=== PATIENT | male | born 1945 | race Caucasian/White ===

== ENCOUNTER 2016-05-31 08:39 | Inpatient (IN) | payer OTHER ==
[2016-05-31] MEDS ORDERED: ONDANSETRON 4 MG/2 ML VIAL IVP ONE ×2 (09:01→09:30)
--- NOTE | 2016-05-31 09:06 | CPEKG ---
Heart Rate: 148 RR Interval: 405 P-R Interval: 132 QRSD Interval: 74 QT Interval: 268 QTC Interval: 421 P [place]: 71 QRS [place]: 41 T Wave [place]: -46 EKG Severity - ABNORMAL ECG - EKG Impression: SINUS TACHYCARDIA EKG Impression: MULTIPLE VENTRICULAR PREMATURE COMPLEXES EKG Impression: CONSIDER POSTERIOR INFARCT EKG Impression: REPOLARIZATION ABNORMALITY, PROB RATE RELATED Electronically Signed By: Parveen Wallace 31-May-2016 11:43:50
[2016-05-31] MEDS ORDERED: NS 1,000 ML IV ONE ×4 (09:10→15:42)
[2016-05-31 09:18] LABS: % IMMATURE GRANULYOCYTES 0.7 % (0.0-1.1); ABSOLUTE IMMATURE GRANULOCYTES 0.11 10^3/uL (0.00-0.10); ADD DIFF? NO; ADD MORPH? NO; ADD SCAN? NO; ATYPICAL LYMPHOCYTE FLAG 0 (0-99); FRAGMENT RBC FLAG 0 (0-99); LEFT SHIFT FLG 0 (0-99); LIPEMIA HEMOLYSIS FLAG 90 (0-99); MEAN CELL HEMOGLOBIN 34.2 pg (27.9-34.1); MEAN CELL HEMOGLOBIN CONCENTR. 34.3 g/dL (32.4-36.7); MEAN CELL VOLUME 99.7 fL (81.5-99.8); MEAN PLATELET VOLUME 11.7 fL (8.7-11.7); PLATELET CLUMPS FLAG 0 (0-99); PLATELET COUNT 185 10^3/uL (150-400); RED BLOOD CELL COUNT 3.51 10^6/uL (4.40-6.38); RED CELL DISTRIBUTION WIDTH 12.9 % (11.5-15.2)
[2016-05-31] MEDS ORDERED: PANTOPRAZOLE SODIUM 40 MG VIAL IVP ONE (09:30)
[2016-05-31 09:32] LABS: INR 1.44 (0.83-1.16); PROTIME(PATIENT) 17.5 SEC (12.0-15.0)
[2016-05-31 09:33] LABS: ANION GAP 16 mEq/L (8-16); APTT 27.6 SEC (23.0-38.0); CALCIUM 8.8 mg/dL (8.5-10.4); CARBON DIOXIDE 23 mEq/l (22-31); CHLORIDE 104 mEq/L (97-110); CREATININE 1.3 mg/dL (0.7-1.3); GLOMERULAR FILTRATION RATE 55; GLUCOSE 249 mg/dL (70-100); POTASSIUM 3.5 mEq/L (3.5-5.2); SODIUM 143 mEq/L (134-144)
[2016-05-31 09:34] LABS: ALBUMIN 3.4 g/dL (3.5-5.0); BILIRUBIN,TOTAL 2.2 mg/dL (0.1-1.4); BILIRUBIN-CONJUGATED 0.6 mg/dL (0.0-0.5); BILIRUBIN-UNCONJUGATED 1.6 mg/dL (0.0-1.1); TOTAL PROTEIN 6.3 g/dL (6.3-8.2)
--- NOTE | 2016-05-31 09:43 | EDPHY ---
H & P Stated Complaint: gi bleeding/etoh HPI/ROS: Chief complaint: Blood in vomit and stool History of present illness: This is a 70-year-old male with a history of extensive alcohol use who presents to the emergency department reporting he believes he has blood in his vomit and stool. Patient has been feeling unwell for the last few days. Yesterday became nauseous and started to vomit. Patient states the vomiting is starting to become bloody with bright red blood. He further reports he has developed diarrhea. He states his stool is very dark in color. He describes associated generalized malaise as well as dizziness. He denies specific precipitating factors. He denies alleviating factors. He denies other associated signs or symptoms. Review of systems: A 10 point review of systems was obtained and other than described above was negative - Personal History Current Tetanus/Diphtheria Vaccine: Unsure - Medical/Surgical History Hx Asthma: No Hx Chronic Respiratory Disease: No Hx Diabetes: No Hx Cardiac Disease: No Hx Renal Disease: No Hx Cirrhosis: No Hx Alcoholism: Yes Hx HIV/AIDS: No Hx Splenectomy or Spleen Trauma: No Other PMH: glaucoma. htn. high cholesterol. pancreatitis. previous hx of etoh heavy use. hemorrhoidectomy - Social History Smoking Status: Never smoked - Physical Exam Exam: General Appearance: Alert, unwell appearing. Eyes: Pupils equal and round no pallor or injection. ENT, Mouth: Mucous membranes moist. Respiratory: There are no retractions, lungs are clear to auscultation. Cardiovascular: Tachycardic. Gastrointestinal: Bowel sounds present. Abdomen is soft and nondistended. Minor tenderness diffusely to palpation. Neurological: Alert and oriented. Strength and sensation intact and symmetrical. Skin: Warm and dry, no rashes. Musculoskeletal: Neck is supple nontender. Extremities are symmetrical, full range of motion. Psychiatric: Patient is oriented X 3, there is no agitation. Constitutional: Initial Vital Signs Temperature (C) 36.4 C 05/31/16 08:44 Heart Rate 174 H 05/31/16 08:44 Respiratory Rate 22 H 05/31/16 08:44 Blood Pressure 112/84 H 05/31/16 08:44 O2 Sat (%) 97 05/31/16 08:44 O2 Delivery Mode Room Air Allergies/Adverse Reactions: lidocaine Allergy (Verified 05/31/16 08:43) Home Medications: Medication Instructions Recorded Fluticasone Nasal [Flonase Nasal 1 sprays NASAL BID PRN 04/01/14 [place]] MAGNESIUM [Magnesium Oxide 200 mg] 1 tab PO DAILY #30 tab 04/05/14 Atorvastatin Calcium [Lipitor 20 20 mg PO HS 05/31/16 mg (*)] Folic Acid [FOLIC ACID] 1 mg PO DAILY 05/31/16 Latanoprost [Latanoprost] 1 drop EACHEYE HS 05/31/16 Loratadine [Claritin] 10 mg PO DAILY PRN 05/31/16 Metoprolol Succinate 50 mg PO HS 05/31/16 Propylene Glycol [Systane Balance] 1 drop EACHEYE HS PRN 05/31/16 Medical Decision Making ED Course/Re-evaluation: Patient discussed with my secondary supervising physician Dr. Parveen Wallace. Patient presents to the emergency department reporting blood in his vomit and stool. On presentation he is unwell appearing. He is significantly tachycardic. 2 IVs are established and he is IV hydrated. He is given Zofran for nausea. He is started on Protonix IV. Baseline blood studies show a mild anemia and significant elevation of his LFTs. I am concerned for a GI bleed. I am further concerned he might be in alcohol withdrawal given his significant alcohol use, his last drink was 2 days ago. He will be admitted to the hospitalist service under the care of Dr. Wanda Ocampo. On-call gastroenterology, Dr. Fish will see this patient in consultation. The plan has been discussed with the patient who voiced understanding and agreement with it. Differential Diagnosis: Included but not limited to upper GI bleed, lower GI bleed, coagulopathy, alcohol intoxication, alcohol withdrawal - Data Points Laboratory Results: Laboratory Results 05/31/16 09:00 05/31/16 09:00 05/31/16 09:00 WBC 16.16 H 10^3/uL (3.80-9.50) RBC 3.51 L 10^6/uL (4.40-6.38) Hgb 12.0 L g/dL (13.7-17.5) Hct 35.0 L % (40.0-51.0) MCV 99.7 fL (81.5-99.8) MCH 34.2 H pg (27.9-34.1) MCHC 34.3 g/dL (32.4-36.7) RDW 12.9 % (11.5-15.2) Plt Count 185 10^3/uL (150-400) MPV 11.7 fL (8.7-11.7) Neut % (Auto) 83.9 H % (39.3-74.2) Lymph % (Auto) 7.1 L % (15.0-45.0) Sharkey % (Auto) 8.0 % (4.5-13.0) Eos % (Auto) 0.0 L % (0.6-7.6) Baso % (Auto) 0.3 % (0.3-1.7) Nucleat RBC Rel Count 0.0 % (0.0-0.2) Absolute Neuts (auto) 13.55 H 10^3/uL (1.70-6.50) Absolute Lymphs (auto) 1.15 10^3/uL (1.00-3.00) Absolute Monos (auto) 1.30 H 10^3/uL (0.30-0.80) Absolute Eos (auto) 0.00 L 10^3/uL (0.03-0.40) Absolute Basos (auto) 0.05 10^3/uL (0.02-0.10) Absolute Nucleated RBC 0.00 10^3/uL (0-0.01) Immature Gran % 0.7 % (0.0-1.1) Immature Gran # 0.11 H 10^3/uL (0.00-0.10) PT 17.5 H SEC (12.0-15.0) INR 1.44 H (0.83-1.16) APTT 27.6 SEC (23.0-38.0) Sodium 143 mEq/L (134-144) Potassium 3.5 mEq/L (3.5-5.2) Chloride 104 mEq/L (97-110) Carbon Dioxide 23 mEq/l (22-31) Anion Gap 16 mEq/L (8-16) BUN 39 H mg/dL (7-23) Creatinine 1.3 mg/dL (0.7-1.3) Estimated GFR 55 Glucose 249 H mg/dL (70-100) Calcium 8.8 mg/dL (8.5-10.4) Iron 254.0 H mcg/dL (49-199) TIBC 250 L ug/dL (260-490) Iron Saturation 100 H % (20-55) Ferritin 618.0 H ng/mL (17.9-464.0) Total Bilirubin 2.2 H mg/dL (0.1-1.4) Conjugated Bilirubin 0.6 H mg/dL (0.0-0.5) Unconjugated Bilirubin 1.6 H mg/dL (0.0-1.1) AST 108 H IU/L (17-59) ALT 73 H IU/L (21-72) Alkaline Phosphatase 84 IU/L (38-126) Total Protein 6.3 g/dL (6.3-8.2) Albumin 3.4 L g/dL (3.5-5.0) Lipase 62.0 IU/L (23-300) DAVID Screen Pending Anti-Smooth Muscle Ab Pending Hep Bs Antigen Pending Hep Bs Antibody Pending Hep Bs Antibody, Quant Pending Hepatitis C Antibody Pending Patient ABO/Rh Pending Antibody Screen Pending Crossmatch IS Only See Detail Medications Given: Discontinued Medications Sodium Chloride (Ns) 1,000 mls @ 0 mls/hr IV ONCE ONE PRN Reason: Wide Open Stop: 05/31/16 09:11 Last Admin: 05/31/16 10:12 Dose: 1,000 mls Sodium Chloride (Ns) 1,000 mls @ 0 mls/hr IV ONCE ONE PRN Reason: Wide Open Stop: 05/31/16 10:01 Last Admin: 05/31/16 10:13 Dose: 1,000 mls Ondansetron HCl (Zofran) 4 mg IVP EDNOW ONE Stop: 05/31/16 09:02 Last Admin: 05/31/16 09:22 Dose: 4 mg Ondansetron HCl (Zofran) 4 mg IVP EDNOW ONE Stop: 05/31/16 09:31 Last Admin: 05/31/16 10:07 Dose: 4 mg Pantoprazole Sodium (Protonix) 40 mg IVP EDNOW ONE Stop: 05/31/16 09:31 Last Admin: 05/31/16 10:07 Dose: 40 mg Departure - Departure Disposition: [facility] Inpatient Acute Clinical Impression: Gastrointestinal hemorrhage Qualifiers: GI bleed type/associated pathology: unspecified gastrointestinal hemorrhage type Qualifier Code: (K92.2) Gastrointestinal hemorrhage, unspecified Condition: Fair
--- NOTE | 2016-05-31 11:42 | CPEKG ---
Heart Rate: 143 RR Interval: 420 P-R Interval: 132 QRSD Interval: 74 QT Interval: 246 QTC Interval: 380 P [place]: 75 QRS [place]: 22 T Wave [place]: 1 EKG Severity - ABNORMAL ECG - EKG Impression: SINUS TACHYCARDIA EKG Impression: CONSIDER POSTERIOR INFARCT EKG Impression: BORDERLINE T WAVE ABNORMALITIES Electronically Signed By: Parveen Wallace 31-May-2016 11:44:21
--- NOTE | 2016-05-31 12:03 | GCON ---
[f rep st] CONSULTATION CHIEF COMPLAINT: A 70-year-old male with hematemesis and abnormal liver function tests. We were ask ed to see this patient in consultation by Howard Ledbetter in the emergency department. HISTORY OF PRESENT ILLNESS: This 70-year-old gentleman has a history of significant alcohol use. He drinks wine and vodka on a regular basis. He last drank alcohol about 2 days ago. He also has a hi story of hypertension, hypercholesterolemia and previous episode of pancreatitis, rhabdomyolysis, and acute renal injury from NSAIDs. The patient has been feeling unwell for the last 2 days. He has be en having nausea and vomiting with retching. Yesterday, he vomited up some coffee-ground material. This morning he started vomiting bright red hematemesis. He has also been having several episodes of melena. The patient presented to the emergency department. He was found to have abnormal liver fun ction tests with an AST of 108, ALT of 73, total bilirubin of 2.2. Lipase is normal at 62. Hemoglob in was 12.0 with hematocrit 35. Platelets 185,000. The patient was tachycardic but with normal bloo d pressure. Asked to see patient for further evaluation. PAST MEDICAL HISTORY: Remarkable for hypertension, hyperlipidemia. ALLERGIES: Lidocaine. MEDICATIONS: At home: Hydrochlorothiazide, simvastatin, Flonase, atenolol. 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 Drinks a lcohol as above. He is a nonsmoker. No prior history of IV drug use. FAMILY HISTORY: Negative as it pertains to chief complaint. REVIEW OF SYSTEMS: Negative 10 systems other than mentioned in HPI. PHYSICAL EXAM: VITAL SIGNS: 125/74, pulse 134, respiratory rate 20, 95% saturation on room air. AMADA HOLDER: A pleasant gentleman, no acute distress. HEENT: Normocephalic, atraumatic. EOMI. NECK: S upple. No cervical adenopathy. No thyromegaly. LUNGS: Clear. CARDIAC: Normal S1, S2. No murmur . ABDOMEN: Soft, benign, nontender. No hepatosplenomegaly. EXTREMITIES: Unremarkable without clu bbing, cyanosis, edema. NEURO: Nonfocal. SKIN: Warm, dry, intact. PSYCH: Alert, oriented x3, wi th normal affect. LABORATORY DATA: AST of 108, total bilirubin of 2.2, ALT of 73. PT of 17.5, INR of 1.44. White cou nt 16.16, hemoglobin 12, hematocrit 35, platelets 185,000. IMPRESSION: 1. A 70-year-old gentleman with a history of significant alcohol use. Patient with episode hemateme sis and melena. Clinical presentation consistent with [place] tear. However, we need to exclu de significant alcoholic gastritis, peptic ulcer disease, portal hypertension with esophageal or loni evelyn varices. 2. Patient with abnormal liver function tests most consistent with alcoholic liver disease and acute alcoholic hepatitis. Also recommend excluding other potential causes such as chronic viral hepatiti s. Recommend right upper quadrant ultrasound to rule out biliary obstruction. Also evaluate for bandar atosis. Will recommend hepatitis B and C serologies, as well as autoimmune markers. RECOMMENDATIONS: 1. N.p.o. 2. Serial hemoglobin and hematocrit. 3. IV Protonix 80 mg bolus followed by 8 mg/hour. 4. Proceed with urgent upper endoscopy. We will ask for anesthesia assistance due to potential sign ificant alcohol withdrawal. 5. Right upper quadrant ultrasound. 6. Labs to include followup LFTs, HCV antibody, HB surface antigen, HB surface antibody, DAVID, anti-s mooth muscle antibody, iron, TIBC, and ferritin. We will follow with you. /[id number]/MODL
[2016-05-31 12:10] LABS: TOTAL IRON BINDING CAPACITY 250 ug/dL (260-490)
[2016-05-31 12:20] LABS: % SATURATION 100 % (20-55)
[2016-05-31] MEDS ORDERED: MIDAZOLAM 2 MG/2 ML VIAL ONE (12:43)
[2016-05-31] MEDS ORDERED: PROPOFOL/EMULSION 500 MG/50 ML BOTTLE IV ONE (12:46)
[2016-05-31] MEDS ORDERED: fentaNYL 100 MCG/2 ML INJ ONE (13:14)
[2016-05-31] MEDS ORDERED: chlordiazePOXIDE 25 MG CAP PO PRN (13:25)
[2016-05-31] MEDS ORDERED: THIAMINE HCL 500 MG in NS 100 ML IV ONE (13:25)
[2016-05-31] MEDS ORDERED: HYDROmorphONE/DILAUDID 1 MG/ML SYR IVP PRN (13:28)
[2016-05-31] MEDS ORDERED: ONDANSETRON 4 MG/2 ML VIAL IVP PRN ×2 (13:28→19:11)
[2016-05-31] MEDS ORDERED: NS 1,000 ML IV SCH (13:30)
--- NOTE | 2016-05-31 13:42 | US ---
Limited Right Upper Quadrant Ultrasound History: Abnormal LFTs, history of alcohol abuse. Comparison: Abdominal ultrasound April 01, 2014. Findings: The liver is diffusely echogenic with coarsened echotexture with a slightly nodular contour , suggesting cirrhosis. The right lobe of the liver measures 17 cm.. There is no intrahepatic biliary dilatation. The common bile duct measures 5 mm and is normal. The gallbladder is normal. The right k idney measures 11.1 cm and has normal echotexture and contour without hydronephrosis. The visible aor ta is normal caliber with partial obscuration of the aorta by overlying bowel gas. The visible portio ns of the pancreas are normal with limited visualization of the pancreatic head and tail. Impression: Nodular heterogeneous echogenic liver suggesting cirrhosis with no focal hepatic masses.
--- NOTE | 2016-05-31 14:09 | GPN ---
[f rep st] PROCEDURE NOTE DATE OF PROCEDURE: 05/31/2016 PROCEDURE: Esophagogastroduodenoscopy with banding. PREOPERATIVE DIAGNOSIS: Upper gastrointestinal bleed. POSTOPERATIVE DIAGNOSIS: Severe active gastrointestinal bleeding, gastroesophageal junction with sev ere erosive esophagitis and possible varices, status post banding x3. INDICATIONS: A 70-year-old gentleman with known history of alcohol abuse. Patient with probable und erlying chronic alcoholic liver disease. The patient presented to the emergency department with yenifer temesis and melena. The patient was tachycardic in shock. Patient fluid resuscitated and brought to the endoscopy unit for further management. PHYSICAL EXAMINATION: VITAL SIGNS: Stable. LUNGS: Clear. CARDIAC EXAM: Normal S1, S2. PERMIT: Procedure was explained to the patient. Risks and benefits of the procedure were outlined t o the patient. Informed consent was obtained. PREOPERATIVE MEDICATIONS: General anesthesia. DESCRIPTION OF PROCEDURE: The patient was placed in the left lateral decubitus position. The GIF-18 0 video endoscope was passed through the oropharynx under direct visualization of the proximal esopha bhupinder. There was a massive amount of blood in the distal esophagus. The endoscope was passed through the stomach. There was severe erosive esophagitis in the distal esophagus. There was a moderate siz e hiatal hernia. There was a large amount of blood and blood clot in the dependent portion of the st omach. Distal stomach appeared normal with normal antrum and pylorus. Endoscope was passed through the pylorus in the 1st and 2nd portion of the duodenum. Duodenal sweep was normal. Endoscope was br ought back in the stomach. Retroflexed view of the stomach revealed a large amount of clot in the fu ndus. Endoscope was unretroflexed. The distal esophagus was carefully inspected. There was active bleeding with spurting, suggestive of an arterial bleed versus a varicocele bleed of the GE junction. Endoscope was withdrawn. Patient was intubated by Anesthesia. Therapeutic scope was then reintrod uced and the stomach was cleared. Endoscope was then withdrawn, and a band ligator was placed on the TGF endoscope. Endoscope was pulled back and passed through the oropharynx in the distal esophagus at the GE junction about 40 cm. The previous area of active bleeding was identified and a band was p laced. A 2nd and 3rd band was placed on another mucosal fold that was suspicious for bleeding. The area of banding was then observed. There appeared to be no continued active bleeding. The endoscope was then withdrawn. IMPRESSION: Severe erosive esophagitis, questionable underlying varices, status post banding. RECOMMENDATIONS: Observe in the ICU. Transfuse 2 units of packed red blood cells. Serial H and H q .6 hours. Continue on an IV Protonix drip but also treat with octreotide after 50 mcg bolus for the next 24 hours. We will follow with you. /[id number]/MODL
[2016-05-31] MEDS: PANTOPRAZOLE SODIUM 80 MG in NS 100 ML IV SCH ×2 (14:36→22:55)
[2016-05-31] MEDS: OCTREOTIDE ACETATE 500 MCG in D5W 50 ML IV SCH ×2 (15:01→22:55)
[2016-05-31] MEDS: OCTREOTIDE ACETATE 50 MCG/ML INJ IVP ONE ×2 (15:02→15:19)
[2016-05-31] MEDS ORDERED: PANTOPRAZOLE SODIUM 40 MG in NS 100 ML IV ONE (15:30)
[2016-05-31] MEDS ORDERED: OCTREOTIDE 100 MCG/1 ML INJ IV ONE (15:30)
--- NOTE | 2016-05-31 15:44 | GHP ---
[f rep st] HISTORY AND PHYSICAL DATE OF ADMISSION: 05/31/2016 CHIEF COMPLAINT: Hematemesis. HISTORY OF PRESENT ILLNESS: The patient is a 70-year-old male who has had nausea and vomiting for th e last 2 days. Yesterday, he had coffee-grounds emesis and today it turned bright red blood. He has also been having melena with loose stool. He denies any abdominal pain. He has been having lighthe adedness and nausea. He is a known alcoholic and has recently been drinking again. He has a longsta nding history of alcoholism. Does abstain for period of time while he takes Antabuse. However, he i s not currently taking it and back to drinking. He is somewhat evasive regarding his alcohol use, bu t the was very forthright. PAST MEDICAL HISTORY: 1. Hypertension. 2. Hyperlipidemia. 3. Alcoholism. 4. Increased LFTs, although no previous cirrhosis diagnosis. 5. Rhabdo secondary to statin. MEDICATIONS: Please see computer record for full detailed list. ALLERGIES: Lidocaine. SOCIAL HISTORY: No smoking. He drinks wine and vodka. He is evasive regarding the amount. His wif e is not clear as to how much he is actually drinking. He was he did not answer the question. He is a retired research and development engineer. He lives with his . REVIEW OF SYSTEMS: Complete review of systems obtained. Review of systems are negative on constitut ional, HEENT, GI, pulmonary, cardiovascular, , hematology, skin, musculoskeletal, endocrine, psych, except for positives and negatives under HPI. FAMILY HISTORY: Reviewed. Noncontributory. PHYSICAL EXAMINATION: GENERAL: Well-developed, well-nourished male, in no acute distress. VITAL SI GNS: Temperature is 36.4, pulse 144, blood pressure 138/81, saturating 94% on room air. EYES: Norm al conjunctivae. Pupils equal, round, reactive to light. ENT: Normal ears, nose. Hearing intact. Normal teeth. Oropharynx moist. NECK: Trachea midline. No thyromegaly. CHEST: Normal respirato ry effort. LUNGS: Clear to auscultation bilaterally. CARDIOVASCULAR: Regular rhythm. No murmur. No extremity edema. ABDOMEN: Soft, nontender. No hepatosplenomegaly. SKIN: Warm, dry, intact wi thout rash. MUSCULOSKELETAL: No cyanosis or clubbing. Strength 5/5 upper and lower extremities. N EURO: Cranial nerves intact. Normal sensation to light touch. PSYCH: Alert and oriented x3. Norm al affect. Normal judgment, insight. Normal memory. LABS: White count 16.16, hematocrit 35.0, platelets 185, sodium 143, potassium 3.5, chloride 104, bi carb 23, BUN 34, creatinine 1.3, glucose 249. LFT shows total bilirubin 2.2, unconjugated 1.6. AST 108. ALT 73. DIAGNOSTIC DATA: EKG reviewed by me. My personal interpretation: Sinus tachycardia. No ST or T-wa ve changes. Abdominal ultrasound is consistent with cirrhosis of the liver. ASSESSMENT/PLAN: 1. Massive upper gastrointestinal bleed. He went straight to endoscopy from the ER and was found to have erosive esophagitis with probable underlying esophageal varices which were banded. He will be maintained on IV Protonix drip and octreotide drip. 2. Acute blood loss anemia. Given the massive blood loss during endoscopy, 2 units of blood have be en ordered up front and then will follow serial H and H. 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 He is still drinking. Does express desire to get back onto Antabuse and come off the alcohol. CODE STATUS: Full. ADMISSION STATUS: 1. Will admit to inpatient, as he is critically ill. Anticipate greater than 2 midnights. 2. DVT prophylaxis. SCDs only, given acute bleeding. /[id number]/MODL
[2016-05-31] MEDS ORDERED: TRANEXAMIC ACID 1,000 MG in NS 100 ML IV ONE (15:45)
[2016-05-31] MEDS ORDERED: TRANEXAMIC ACID 1,000 MG in NS 500 ML IV ONE (15:45)
[2016-05-31 16:36] LABS: HEMATOCRIT 30.3 % (40.0-51.0); HEMOGLOBIN 10.7 g/dL (13.7-17.5)
[2016-05-31] MEDS: LORazepam 2 MG/ML INJ IVP PRN ×2 (18:27→22:55)
--- NOTE | 2016-05-31 19:35 | SOAPPROG ---
SOAP Progress Note Assessment/Plan: Assessment: Patient with recurrent retching with episode of hematemesis. S/p banding of diatal esophageal bleeding. Patient with severe erosive esophagitis. Suspect bleeding from GDA rather than varices. Attempt at NG placement unsuccessful. Several attempts were made. Patient unable to tolerate Plan: 1. Continue to monitor for signs and symptoms of rebleeding. 2. Transfuse two more units of PRBC's 3. Will treat with Zofran to help prevent nausea and recurrent vomiting. 4. If recurrent bleeding will ask IR to help with angio for embolization. Discussed with Dr. Cuadra. 05/31/16 19:39 Subjective: CC: GIB Called back to assess patient for recurrent GI bleeding. He is s/p EGD with banding of bleeding seen at [facility]. Bleeding in the seeting of severe erosive esophagitis. No obvious varies seen. However there was active bleeding felt to be possible arterial. A band was placed. Patient had more retching in ICU and vomitted 200 cc of BRB. Objective: Vital Signs Temp Pulse Resp BP Pulse Ox 36.8 C 117 H 18 134/71 H 97 05/31/16 16:00 05/31/16 18:00 05/31/16 18:00 05/31/16 18:00 05/31/16 18:00 Laboratory Results 05/31/16 16:30 05/30/16 05/31/16 06/01/16 05:59 05:59 05:59 Intake Total 5319 Output Total 400 Balance 4919 PT 17.5 SEC (12.0-15.0) H 05/31/16 09:00 INR 1.44 (0.83-1.16) H 05/31/16 09:00 Generic Name Dose Route Start Last Admin Trade Name Freq PRN Reason Stop Dose Admin Chlordiazepoxide HCl 25 - 50 mg 05/31/16 13:25 Librium PO 11/27/16 13:24 Q4HRS PRN Agitation Folic Acid 1 mg 06/01/16 09:00 Folic Acid PO 11/28/16 08:59 DAILY ANDIE Gabapentin 200 mg 05/31/16 22:00 Neurontin PO 11/27/16 21:59 TID ANDIE Gabapentin 300 mg 05/31/16 22:00 Neurontin PO 11/27/16 21:59 TID ANDIE Hydromorphone HCl 0.2 - 0.4 mg 05/31/16 13:28 Dilaudid IVP 06/10/16 13:27 Q2HRS PRN Pain, Severe Unable to Take PO Sodium Chloride 1,000 mls @ 150 mls/hr 05/31/16 13:30 Ns IV 11/27/16 13:29 CONT ANDIE Pantoprazole Sodium 80 mg/ 100 mls @ 10 mls/hr 05/31/16 13:30 05/31/16 14:36 Sodium Chloride IV 11/27/16 13:29 100 mls Q10H ANDIE Administration Thiamine HCl 500 mg/ Sodium 105 mls @ 210 mls/hr 06/01/16 09:00 Chloride IV 06/02/16 09:29 DAILY ANDIE Octreotide Acetate 500 mcg/ 51 mls @ 5 mls/hr 05/31/16 14:00 05/31/16 15:01 Dextrose IV 11/27/16 13:59 51 mls CONT ANDIE Administration Tranexamic Acid 1,000 mg/ 510 mls @ 63.75 mls/hr 05/31/16 15:45 05/31/16 16:34 Sodium Chloride IV 05/31/16 23:44 510 mls ONCE ONE Administration Latanoprost 1 drops 05/31/16 21:00 Xalatan 0.005% EACHEYE 11/27/16 20:59 HS [facility] Lorazepam 1 mg 05/31/16 13:25 05/31/16 18:27 Ativan Injection IVP 11/27/16 13:24 1 mg Q4HRS PRN Administration Agitation Magnesium Oxide 200 mg 06/01/16 09:00 Magnesium Oxide PO 11/28/16 08:59 DAILY [facility] Metoprolol Succinate 50 mg 05/31/16 21:00 Toprol Xl PO 11/27/16 20:59 HS [facility] Ondansetron HCl 8 mg 05/31/16 19:11 Zofran IVP 11/27/16 19:10 Q4 PRN Nausea/Vomiting, Can't Take PO Thiamine HCl 100 mg 06/03/16 09:00 Vitamin B-1 PO 11/30/16 08:59 DAILY [facility] Discontinued Medications Generic Name Dose Route Start Last Admin Trade Name Freq PRN Reason Stop Dose Admin Fentanyl Confirm 05/31/16 13:14 Sublimaze Administered 05/31/16 13:15 Dose 100 mcg .ROUTE .STK-MED ONE Sodium Chloride 1,000 mls @ 0 mls/hr 05/31/16 09:10 05/31/16 10:12 Ns IV 05/31/16 09:11 1,000 mls ONCE ONE Administration Wide Open Sodium Chloride 1,000 mls @ 0 mls/hr 05/31/16 10:00 05/31/16 10:13 Ns IV 05/31/16 10:01 1,000 mls ONCE ONE Administration Wide Open Sodium Chloride 1,000 mls @ 0 mls/hr 05/31/16 11:43 05/31/16 15:00 Ns IV 05/31/16 11:44 Not Given ONCE ONE Wide Open Thiamine HCl 500 mg/ Sodium 105 mls @ 210 mls/hr 05/31/16 13:25 Chloride IV 05/31/16 13:54 ONCE ONE Pantoprazole Sodium 40 mg/ 100 mls @ 200 mls/hr 05/31/16 15:30 05/31/16 15:24 Sodium Chloride IV 05/31/16 15:59 100 mls ONCE ONE Administration Sodium Chloride 1,000 mls @ 0 mls/hr 05/31/16 15:42 05/31/16 16:34 Ns IV 05/31/16 15:43 1,000 mls ONCE ONE Administration Wide Open Tranexamic Acid 1,000 mg/ 110 mls @ 660 mls/hr 05/31/16 15:45 05/31/16 16:34 Sodium Chloride IV 05/31/16 15:54 110 mls ONCE ONE Administration Midazolam HCl Confirm 05/31/16 12:43 Versed Administered 05/31/16 12:44 Dose 2 mg .ROUTE .STK-MED ONE Octreotide Acetate 50 mcg 05/31/16 13:44 05/31/16 15:19 Octreotide Acetate IVP 05/31/16 13:45 Not Given ONCE ONE Octreotide Acetate 50 mcg 05/31/16 15:30 05/31/16 15:23 Sandostatin IV 05/31/16 15:31 50 mcg ONCE ONE Administration Ondansetron HCl 4 mg 05/31/16 09:01 05/31/16 09:22 Zofran IVP 05/31/16 09:02 4 mg EDNOW ONE Administration Ondansetron HCl 4 mg 05/31/16 09:30 05/31/16 10:07 Zofran IVP 05/31/16 09:31 4 mg EDNOW ONE Administration Ondansetron HCl 4 mg 05/31/16 13:28 05/31/16 15:27 Zofran IVP 11/27/16 13:27 4 mg Q4 PRN Administration Nausea/Vomiting, Can't Take PO Pantoprazole Sodium 40 mg 05/31/16 09:30 05/31/16 10:07 Protonix IVP 05/31/16 09:31 40 mg EDNOW ONE Administration Propofol Confirm 05/31/16 12:46 Diprivan 10 Mg/Ml (Premix) Administered 05/31/16 12:47 Dose 500 mg IV .STK-MED ONE Physical Exam - Physical Exam General Appearance: alert Respiratory: lungs clear, normal breath sounds Cardiac/Chest: regular rate, rhythm, tachycardia, other Abdomen: non-tender, soft Neuro/Psych: alert, normal mood/affect, oriented x 3 ICD10 Worksheet Patient Problems: Problems Problem Status Diagnosed GI bleed Acute Renal failure Acute
[2016-05-31] MEDS: LATANOPROST 0.005% 2.5 ML OPHT DROPS EACHEYE SCH (21:25)
[2016-05-31] MEDS: GABAPENTIN 100 MG CAP PO SCH (22:35)
[2016-05-31] MEDS: GABAPENTIN 300 MG CAP PO SCH (22:35)
[2016-05-31] MEDS: METOPROLOL SUCCINATE XR 50 MG TAB PO SCH (22:56)
[2016-05-31 23:08] LABS: HEMATOCRIT 33.4 % (40.0-51.0)
[2016-06-01 05:16] LABS: % IMMATURE GRANULYOCYTES 0.5 % (0.0-1.1); ABSOLUTE IMMATURE GRANULOCYTES 0.06 10^3/uL (0.00-0.10); ADD DIFF? NO; ADD MORPH? NO; ADD SCAN? NO; ATYPICAL LYMPHOCYTE FLAG 10 (0-99); FRAGMENT RBC FLAG 0 (0-99); HEMATOCRIT 33.1 % (40.0-51.0); HEMOGLOBIN 11.5 g/dL (13.7-17.5); LEFT SHIFT FLG 0 (0-99); LIPEMIA HEMOLYSIS FLAG 90 (0-99); MEAN CELL HEMOGLOBIN 32.6 pg (27.9-34.1); MEAN CELL HEMOGLOBIN CONCENTR. 34.7 g/dL (32.4-36.7); MEAN CELL VOLUME 93.8 fL (81.5-99.8); MEAN PLATELET VOLUME 11.6 fL (8.7-11.7); PLATELET CLUMPS FLAG 10 (0-99); PLATELET COUNT 64 10^3/uL (150-400); RED BLOOD CELL COUNT 3.53 10^6/uL (4.40-6.38); RED CELL DISTRIBUTION WIDTH 17.4 % (11.5-15.2)
[2016-06-01 05:21] LABS: ALANINE AMINOTRANSFERASE 50 IU/L (21-72); ALBUMIN 2.4 g/dL (3.5-5.0); ALKALINE PHOSPHATASE 54 IU/L (38-126); ANION GAP 5 mEq/L (8-16); ASPARTATE AMINOTRANSFERASE 58 IU/L (17-59); BILIRUBIN,TOTAL 2.8 mg/dL (0.1-1.4); BILIRUBIN-CONJUGATED 0.6 mg/dL (0.0-0.5); BILIRUBIN-UNCONJUGATED 2.2 mg/dL (0.0-1.1); CALCIUM 7.2 mg/dL (8.5-10.4); CARBON DIOXIDE 23 mEq/l (22-31); CHLORIDE 119 mEq/L (97-110); GLOMERULAR FILTRATION RATE > 60; GLUCOSE 157 mg/dL (70-100); MAGNESIUM 1.5 mg/dL (1.6-2.3); POTASSIUM 3.5 mEq/L (3.5-5.2); SODIUM 147 mEq/L (134-144); TOTAL PROTEIN 4.8 g/dL (6.3-8.2)
[2016-06-01] MEDS: MAGNESIUM OXIDE 400 MG TAB PO SCH ×2 (08:58→10:20)
[2016-06-01] MEDS: FOLIC ACID 1 MG TAB PO SCH (08:58)
[2016-06-01] MEDS: OCTREOTIDE ACETATE 500 MCG in D5W 50 ML IV SCH ×2 (08:58→21:18)
[2016-06-01] MEDS ORDERED: NON-FORMULARY NEW DRUG (Magnesium [Magnesium Oxide 200 Mg] 1 TAB) PO SCH (09:00)
[2016-06-01] MEDS: PANTOPRAZOLE SODIUM 80 MG in NS 100 ML IV SCH (09:09)
[2016-06-01] MEDS: GABAPENTIN 100 MG CAP PO SCH (10:06)
[2016-06-01] MEDS: GABAPENTIN 300 MG CAP PO SCH (10:06)
[2016-06-01] MEDS ORDERED: PROTOCOL POTASSIUM 1 DOSE MISC PRN (10:15)
[2016-06-01] MEDS ORDERED: PROTOCOL CALCIUM 1 DOSE IV PRN (10:15)
[2016-06-01] MEDS ORDERED: PROTOCOL K PHOSPHATE 1 DOSE IV PRN (10:15)
[2016-06-01] MEDS ORDERED: PROTOCOL MAGNESIUM 1 DOSE IV PRN (10:15)
[2016-06-01] MEDS: THIAMINE HCL 500 MG in NS 100 ML IV SCH (10:19)
[2016-06-01] MEDS ORDERED: MAGNESIUM SULF 1 GM/DEXTROSE 100 ML IV ONE (10:49)
--- NOTE | 2016-06-01 11:13 | SOAPPROG ---
SOAP Progress Note Assessment/Plan: Assessment: No signs or symptoms of recurrent bleeding over night. No further nausea or retching. Plan: 1. Continue to monitor for signs and symptoms of rebleeding, 2. OK to transfer out of the ICU to telemetry bed 3. Clear liquid diet. 4. Continue on IV octretotide. Can switch to PO Pantoprazole 40 mg Q 12 hours 06/01/16 11:13 Subjective: CC: GI Bleed Patient stable over night. No further bleeding. No nausea Objective: Vital Signs Temp Pulse Resp BP Pulse Ox 36.7 C 87 16 131/67 H 96 06/01/16 08:00 06/01/16 10:00 06/01/16 10:00 06/01/16 10:00 06/01/16 10:00 Laboratory Results 06/01/16 04:51 06/01/16 04:51 05/31/16 06/01/16 06/02/16 05:59 05:59 05:59 Intake Total 7062 Output Total 1000 500 Balance 6062 -500 PT 17.5 SEC (12.0-15.0) H 05/31/16 09:00 INR 1.44 (0.83-1.16) H 05/31/16 09:00 Generic Name Dose Route Start Last Admin Trade Name Freq PRN Reason Stop Dose Admin Calcium Gluconate 1 dose 06/01/16 10:15 Protocol Calcium IV 11/28/16 10:14 AD PRN Pt on Electrolyte Protocol Protocol Chlordiazepoxide HCl 25 - 50 mg 05/31/16 13:25 Librium PO 11/27/16 13:24 Q4HRS PRN Agitation Folic Acid 1 mg 06/01/16 09:00 06/01/16 08:58 Folic Acid PO 11/28/16 08:59 1 mg DAILY ANDIE Administration Hydromorphone HCl 0.2 - 0.4 mg 05/31/16 13:28 Dilaudid IVP 06/10/16 13:27 Q2HRS PRN Pain, Severe Unable to Take PO Sodium Chloride 1,000 mls @ 150 mls/hr 05/31/16 13:30 06/01/16 05:41 Ns IV 11/27/16 13:29 1,000 mls CONT ANDIE Administration Thiamine HCl 500 mg/ Sodium 105 mls @ 210 mls/hr 06/01/16 09:00 06/01/16 10:19 Chloride IV 06/02/16 09:29 105 mls DAILY ANDIE Administration Octreotide Acetate 500 mcg/ 51 mls @ 5 mls/hr 05/31/16 14:00 06/01/16 08:58 Dextrose IV 11/27/16 13:59 51 mls CONT ANDIE Administration Potassium Chloride 100 mls @ 100 mls/hr 06/01/16 11:00 Potassium Cl 10 Meq (Premix) IV 06/01/16 13:59 Q1H ANDIE Magnesium Sulfate/Dextrose 100 mls @ 100 mls/hr 06/01/16 10:49 Magnesium Sulf 1 Gm (Premix) IV 06/01/16 11:48 ONCE ONE Pantoprazole Sodium 40 mg/ 100 mls @ 200 mls/hr 06/01/16 21:00 Sodium Chloride IV 11/28/16 20:59 BID ANDIE Latanoprost 1 drops 05/31/16 21:00 05/31/16 21:25 Xalatan 0.005% EACHEYE 11/27/16 20:59 1 drop HS ANDIE Administration Lorazepam 1 mg 05/31/16 13:25 05/31/16 22:55 Ativan Injection IVP 11/27/16 13:24 1 mg Q4HRS PRN Administration Agitation Magnesium Oxide 200 mg 06/01/16 09:00 06/01/16 10:20 Magnesium Oxide PO 11/28/16 08:59 Not Given DAILY ANDIE Magnesium Sulfate 1 dose 06/01/16 10:15 Protocol Magnesium IV 11/28/16 10:14 AD PRN Pt on Electrolyte Protocol Protocol Metoprolol Succinate 50 mg 05/31/16 21:00 05/31/16 22:56 Toprol Xl PO 11/27/16 20:59 Not Given HS ANIDE Ondansetron HCl 8 mg 05/31/16 19:11 Zofran IVP 11/27/16 19:10 Q4 PRN Nausea/Vomiting, Can't Take PO Potassium Chloride 1 dose 06/01/16 10:15 Protocol Potassium MISC 11/28/16 10:14 AD PRN Pt on Electrolyte Protocol Protocol Potassium Phosphate 1 dose 06/01/16 10:15 Protocol K Phosphate IV 11/28/16 10:14 AD PRN Pt on Electrolyte Protocol Protocol Thiamine HCl 100 mg 06/03/16 09:00 Vitamin B-1 PO 11/30/16 08:59 DAILY ANDIE Discontinued Medications Generic Name Dose Route Start Last Admin Trade Name Fernando PRN Reason Stop Dose Admin Fentanyl Confirm 05/31/16 13:14 Sublimaze Administered 05/31/16 13:15 Dose 100 mcg .ROUTE .STK-MED ONE Gabapentin 200 mg 05/31/16 22:00 06/01/16 10:06 Neurontin PO 11/27/16 21:59 Not Given TID ANDIE Gabapentin 300 mg 05/31/16 22:00 06/01/16 10:06 Neurontin PO 11/27/16 21:59 Not Given TID ANDIE Sodium Chloride 1,000 mls @ 0 mls/hr 05/31/16 09:10 05/31/16 10:12 Ns IV 05/31/16 09:11 1,000 mls ONCE ONE Administration Wide Open Sodium Chloride 1,000 mls @ 0 mls/hr 05/31/16 10:00 05/31/16 10:13 Ns IV 05/31/16 10:01 1,000 mls ONCE ONE Administration Wide Open Sodium Chloride 1,000 mls @ 0 mls/hr 05/31/16 11:43 05/31/16 15:00 Ns IV 05/31/16 11:44 Not Given ONCE ONE Wide Open Pantoprazole Sodium 80 mg/ 100 mls @ 10 mls/hr 05/31/16 13:30 06/01/16 09:09 Sodium Chloride IV 11/27/16 13:29 100 mls Q10H ANDIE Administration Thiamine HCl 500 mg/ Sodium 105 mls @ 210 mls/hr 05/31/16 13:25 05/31/16 21:25 Chloride IV 05/31/16 13:54 105 mls ONCE ONE Administration Pantoprazole Sodium 40 mg/ 100 mls @ 200 mls/hr 05/31/16 15:30 05/31/16 15:24 Sodium Chloride IV 05/31/16 15:59 100 mls ONCE ONE Administration Sodium Chloride 1,000 mls @ 0 mls/hr 05/31/16 15:42 05/31/16 16:34 Ns IV 05/31/16 15:43 1,000 mls ONCE ONE Administration Wide Open Tranexamic Acid 1,000 mg/ 110 mls @ 660 mls/hr 05/31/16 15:45 05/31/16 16:34 Sodium Chloride IV 05/31/16 15:54 110 mls ONCE ONE Administration Tranexamic Acid 1,000 mg/ 510 mls @ 63.75 mls/hr 05/31/16 15:45 05/31/16 16:34 Sodium Chloride IV 05/31/16 23:44 510 mls ONCE ONE Administration Midazolam HCl Confirm 05/31/16 12:43 Versed Administered 05/31/16 12:44 Dose 2 mg .ROUTE .STK-MED ONE Octreotide Acetate 50 mcg 05/31/16 13:44 05/31/16 15:19 Octreotide Acetate IVP 05/31/16 13:45 Not Given ONCE ONE Octreotide Acetate 50 mcg 05/31/16 15:30 05/31/16 15:23 Sandostatin IV 05/31/16 15:31 50 mcg ONCE ONE Administration Ondansetron HCl 4 mg 05/31/16 09:01 05/31/16 09:22 Zofran IVP 05/31/16 09:02 4 mg EDNOW ONE Administration Ondansetron HCl 4 mg 05/31/16 09:30 05/31/16 10:07 Zofran IVP 05/31/16 09:31 4 mg EDNOW ONE Administration Ondansetron HCl 4 mg 05/31/16 13:28 05/31/16 15:27 Zofran IVP 11/27/16 13:27 4 mg Q4 PRN Administration Nausea/Vomiting, Can't Take PO Pantoprazole Sodium 40 mg 05/31/16 09:30 05/31/16 10:07 Protonix IVP 05/31/16 09:31 40 mg EDNOW ONE Administration Propofol Confirm 05/31/16 12:46 Diprivan 10 Mg/Ml (Premix) Administered 05/31/16 12:47 Dose 500 mg IV .STK-MED ONE Physical Exam - Physical Exam General Appearance: alert, no apparent distress Respiratory: lungs clear, normal breath sounds Cardiac/Chest: regular rate, rhythm Abdomen: normal bowel sounds, non-tender, soft Skin: normal color, warm/dry Extremities: non-tender Neuro/Psych: no motor/sensory deficits, alert, normal mood/affect ICD10 Worksheet Patient Problems: Problems Problem Status Diagnosed GI bleed Acute Renal failure Acute
[2016-06-01 11:27] LABS: IONIZED CALCIUM 1.12 MMOL/L (1.12-1.30)
[2016-06-01] MEDS: POTASSIUM Cl (KCl) 100 ML IV SCH ×3 (12:50→13:57)
[2016-06-01] MEDS ORDERED: CALCIUM GLUCONATE 50 ML IV ONE (13:01)
[2016-06-01 13:59] LABS: HEPATITIS Bs Ab QUANT <5.0 mIU/mL (())
--- NOTE | 2016-06-01 15:30 | HOSPPROG ---
Hospitalist Progress Note Assessment/Plan: * UGIB - stabilized * Erosive esophagitis - okay to change to PO PPI * Esophageal varices s/p banding -octreotide gtt -repeat EGD as outpatient * ABL anemia - stable * Etoh cirrhosis * Etoh withdrawal - mild Subjective: no further bleeding Objective: Vital Signs Temp Pulse Resp BP Pulse Ox 36.9 C 98 16 146/76 H 94 06/01/16 13:45 06/01/16 13:45 06/01/16 13:45 06/01/16 13:45 06/01/16 13:45 Laboratory Results 06/01/16 04:51 06/01/16 04:51 05/31/16 06/01/16 06/02/16 05:59 05:59 05:59 Intake Total 7062 810 Output Total 1000 1050 Balance 6062 -240 PT 17.5 SEC (12.0-15.0) H 05/31/16 09:00 INR 1.44 (0.83-1.16) H 05/31/16 09:00 - Physical Exam Constitutional: no apparent distress, appears nourished, not in pain Cardiovascular: regular rate and rhythym, no murmur, rub, or gallop Respiratory: no respiratory distress, no rales or rhonchi, clear to auscultation Gastrointestinal: normoactive bowel sounds, soft, non-tender abdomen, no palpable masses Skin: no rashes or abrasions, no fluctuance, no induration Neurologic: AAOx3, sensation intact bilaterally Psychiatric: interacting appropriately, not anxious, not encephalopathic, thought process linear ICD10 Worksheet Patient Problems: Problems Problem Status Diagnosed GI bleed Acute Renal failure Acute
[2016-06-01 19:45] LABS: POTASSIUM 3.5 mEq/L (3.5-5.2)
[2016-06-01] MEDS ORDERED: POTASSIUM CL 10 MEQ TAB PO ONE (19:46)
[2016-06-01] MEDS: METOPROLOL SUCCINATE XR 50 MG TAB PO SCH (20:05)
[2016-06-01] MEDS: PANTOPRAZOLE SODIUM 40 MG TAB PO SCH (20:05)
[2016-06-01] MEDS: LATANOPROST 0.005% 2.5 ML OPHT DROPS EACHEYE SCH (20:07)
[2016-06-01] MEDS ORDERED: PANTOPRAZOLE SODIUM 40 MG in NS 100 ML IV SCH (21:00)
[2016-06-02 05:25] LABS: % IMMATURE GRANULYOCYTES 0.3 % (0.0-1.1); ABSOLUTE IMMATURE GRANULOCYTES 0.02 10^3/uL (0.00-0.10); ADD DIFF? NO; ADD MORPH? NO; ADD SCAN? NO; ATYPICAL LYMPHOCYTE FLAG 0 (0-99); FRAGMENT RBC FLAG 0 (0-99); HEMATOCRIT 32.9 % (40.0-51.0); HEMOGLOBIN 11.7 g/dL (13.7-17.5); LEFT SHIFT FLG 0 (0-99); LIPEMIA HEMOLYSIS FLAG 90 (0-99); MEAN CELL HEMOGLOBIN 33.8 pg (27.9-34.1); MEAN CELL HEMOGLOBIN CONCENTR. 35.6 g/dL (32.4-36.7); MEAN CELL VOLUME 95.1 fL (81.5-99.8); MEAN PLATELET VOLUME 11.2 fL (8.7-11.7); PLATELET CLUMPS FLAG 10 (0-99); PLATELET COUNT 63 10^3/uL (150-400); RED BLOOD CELL COUNT 3.46 10^6/uL (4.40-6.38); RED CELL DISTRIBUTION WIDTH 16.3 % (11.5-15.2)
[2016-06-02 05:45] LABS: ALANINE AMINOTRANSFERASE 47 IU/L (21-72); ALBUMIN 2.6 g/dL (3.5-5.0); ALKALINE PHOSPHATASE 58 IU/L (38-126); ANION GAP 6 mEq/L (8-16); ASPARTATE AMINOTRANSFERASE 50 IU/L (17-59); BILIRUBIN,TOTAL 1.9 mg/dL (0.1-1.4); BILIRUBIN-CONJUGATED 0.7 mg/dL (0.0-0.5); BILIRUBIN-UNCONJUGATED 1.2 mg/dL (0.0-1.1); CALCIUM 7.9 mg/dL (8.5-10.4); CARBON DIOXIDE 24 mEq/l (22-31); CHLORIDE 110 mEq/L (97-110); CREATININE 0.9 mg/dL (0.7-1.3); GLOMERULAR FILTRATION RATE > 60; GLUCOSE 132 mg/dL (70-100); MAGNESIUM 1.9 mg/dL (1.6-2.3); POTASSIUM 3.6 mEq/L (3.5-5.2); SODIUM 140 mEq/L (134-144)
[2016-06-02] MEDS ORDERED: POTASSIUM CL 10 MEQ TAB PO ONE ×2 (07:30→20:15)
[2016-06-02] MEDS: OCTREOTIDE ACETATE 500 MCG in D5W 50 ML IV SCH (08:16)
[2016-06-02] MEDS: FOLIC ACID 1 MG TAB PO SCH (08:16)
[2016-06-02] MEDS: MAGNESIUM OXIDE 400 MG TAB PO SCH (08:16)
[2016-06-02] MEDS: THIAMINE HCL 500 MG in NS 100 ML IV SCH (08:16)
[2016-06-02] MEDS: PANTOPRAZOLE SODIUM 40 MG TAB PO SCH ×2 (08:16→21:08)
--- NOTE | 2016-06-02 08:30 | HOSPPROG ---
Hospitalist Progress Note Assessment/Plan: patient is a 70-year-old male who presented to the emergency room with nausea and vomiting. Also had coffee ground emesis. I reviewed his care with Dr. Ocampo who has been caring for him. This is my 1st encounter with the patient. Chart reviewed. Reviewed his care with Dr Fish. 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 Objective: Vital Signs Temp Pulse Resp BP Pulse Ox 36.9 C 78 17 199/69 H 91 L 06/02/16 07:46 06/02/16 07:46 06/02/16 07:46 06/02/16 07:46 06/02/16 07:46 Laboratory Results 06/02/16 04:54 06/02/16 04:54 06/01/16 06/02/16 06/03/16 05:59 05:59 05:59 Intake Total 7062 2130 Output Total 1000 1675 300 Balance 6062 455 -300 PT 17.5 SEC (12.0-15.0) H 05/31/16 09:00 INR 1.44 (0.83-1.16) H 05/31/16 09:00 - Physical Exam Constitutional: no apparent distress, appears nourished, not in pain Eyes: PERRL Ears, Nose, Mouth, Throat: hearing normal Cardiovascular: regular rate and rhythym Respiratory: no respiratory distress Gastrointestinal: normoactive bowel sounds Skin: warm Musculoskeletal: full muscle strength Neurologic: AAOx3 Psychiatric: interacting appropriately, not anxious ICD10 Worksheet Patient Problems: Problems Problem Status Diagnosed GI bleed Acute Renal failure Acute
--- NOTE | 2016-06-02 11:43 | SOAPPROG ---
FIL[facility] Progress Note Assessment/Plan: Assessment: GI bleed stable. Cirrhotic appearing liver on abdominal U/S Plan: 1. Advance diet as tolerated 2. D/C Octreotide 3. Continue on PPI BID 4. Add Nadolol 20 mg po daily 5. Follow up with Dr. Franks in the office this week, and follow up EGD in 4 weeks 6. Will sign off, please call with further questions. 06/02/16 11:39 Subjective: CC: GI Bleed UGI Bleed in alcoholic with cirrhosis and sever esophagitis. ? Varices No signs of bleeding, reports to be hungry. Objective: Vital Signs Temp Pulse Resp BP Pulse Ox 36.9 C 78 17 199/69 H 91 L 06/02/16 07:46 06/02/16 07:46 06/02/16 07:46 06/02/16 07:46 06/02/16 07:46 Laboratory Results 06/02/16 04:54 06/02/16 04:54 06/01/16 06/02/16 06/03/16 05:59 05:59 05:59 Intake Total 7062 2130 Output Total 1000 1675 300 Balance 6062 455 -300 PT 17.5 SEC (12.0-15.0) H 05/31/16 09:00 INR 1.44 (0.83-1.16) H 05/31/16 09:00 Generic Name Dose Route Start Last Admin Trade Name Freq PRN Reason Stop Dose Admin Chlordiazepoxide HCl 25 - 50 mg 05/31/16 13:25 Librium PO 11/27/16 13:24 Q4HRS PRN Agitation Folic Acid 1 mg 06/01/16 09:00 06/02/16 08:16 Folic Acid PO 11/28/16 08:59 1 mg DAILY ANDIE Administration Hydromorphone HCl 0.2 - 0.4 mg 05/31/16 13:28 Dilaudid IVP 06/10/16 13:27 Q2HRS PRN Pain, Severe Unable to Take PO Latanoprost 1 drops 05/31/16 21:00 06/01/16 20:07 Xalatan 0.005% EACHEYE 11/27/16 20:59 Not Given HS ANDIE Lorazepam 1 mg 05/31/16 13:25 05/31/16 22:55 Ativan Injection IVP 11/27/16 13:24 1 mg Q4HRS PRN Administration Agitation Magnesium Oxide 200 mg 06/01/16 09:00 06/02/16 08:16 Magnesium Oxide PO 11/28/16 08:59 200 mg DAILY ANDIE Administration Magnesium Sulfate 1 dose 06/01/16 10:15 Protocol Magnesium IV 11/28/16 10:14 AD PRN Pt on Electrolyte Protocol Protocol Metoprolol Succinate 50 mg 05/31/16 21:00 06/01/16 20:05 Toprol Xl PO 11/27/16 20:59 50 mg HS ANDIE Administration Nadolol 20 mg 06/02/16 11:30 Nadolol PO 11/29/16 11:29 DAILY ANDIE Ondansetron HCl 8 mg 05/31/16 19:11 Zofran IVP 11/27/16 19:10 Q4 PRN Nausea/Vomiting, Can't Take PO Pantoprazole Sodium 40 mg 06/01/16 21:00 06/02/16 08:16 Protonix PO 11/28/16 20:59 40 mg BID ANDIE Administration Potassium Chloride 1 dose 06/01/16 10:15 Protocol Potassium MISC 11/28/16 10:14 AD PRN Pt on Electrolyte Protocol Protocol Potassium Phosphate 1 dose 06/01/16 10:15 Protocol K Phosphate IV 11/28/16 10:14 AD PRN Pt on Electrolyte Protocol Protocol Thiamine HCl 100 mg 06/03/16 09:00 Vitamin B-1 PO 11/30/16 08:59 DAILY ANDIE Discontinued Medications Generic Name Dose Route Start Last Admin Trade Name Freq PRN Reason Stop Dose Admin Calcium Gluconate 1 dose 06/01/16 10:15 Protocol Calcium IV 11/28/16 10:14 AD PRN Pt on Electrolyte Protocol Protocol Fentanyl Confirm 05/31/16 13:14 Sublimaze Administered 05/31/16 13:15 Dose 100 mcg .ROUTE .STK-MED ONE Gabapentin 200 mg 05/31/16 22:00 06/01/16 10:06 Neurontin PO 11/27/16 21:59 Not Given TID ANDIE Gabapentin 300 mg 05/31/16 22:00 06/01/16 10:06 Neurontin PO 11/27/16 21:59 Not Given TID ANDIE Sodium Chloride 1,000 mls @ 0 mls/hr 05/31/16 09:10 05/31/16 10:12 Ns IV 05/31/16 09:11 1,000 mls ONCE ONE Administration Wide Open Sodium Chloride 1,000 mls @ 0 mls/hr 05/31/16 10:00 05/31/16 10:13 Ns IV 05/31/16 10:01 1,000 mls ONCE ONE Administration Wide Open Sodium Chloride 1,000 mls @ 0 mls/hr 05/31/16 11:43 05/31/16 15:00 Ns IV 05/31/16 11:44 Not Given ONCE ONE Wide Open Sodium Chloride 1,000 mls @ 150 mls/hr 05/31/16 13:30 06/01/16 05:41 Ns IV 11/27/16 13:29 1,000 mls CONT ANDIE Administration Pantoprazole Sodium 80 mg/ 100 mls @ 10 mls/hr 05/31/16 13:30 06/01/16 09:09 Sodium Chloride IV 11/27/16 13:29 100 mls Q10H ANDIE Administration Thiamine HCl 500 mg/ Sodium 105 mls @ 210 mls/hr 05/31/16 13:25 05/31/16 21:25 Chloride IV 05/31/16 13:54 105 mls ONCE ONE Administration Thiamine HCl 500 mg/ Sodium 105 mls @ 210 mls/hr 06/01/16 09:00 06/02/16 08:16 Chloride IV 06/02/16 09:29 105 mls DAILY ANDIE Administration Octreotide Acetate 500 mcg/ 51 mls @ 5 mls/hr 05/31/16 14:00 06/02/16 08:16 Dextrose IV 11/27/16 13:59 51 mls CONT ANDIE Administration Pantoprazole Sodium 40 mg/ 100 mls @ 200 mls/hr 05/31/16 15:30 05/31/16 15:24 Sodium Chloride IV 05/31/16 15:59 100 mls ONCE ONE Administration Sodium Chloride 1,000 mls @ 0 mls/hr 05/31/16 15:42 05/31/16 16:34 Ns IV 05/31/16 15:43 1,000 mls ONCE ONE Administration Wide Open Tranexamic Acid 1,000 mg/ 110 mls @ 660 mls/hr 05/31/16 15:45 05/31/16 16:34 Sodium Chloride IV 05/31/16 15:54 110 mls ONCE ONE Administration Tranexamic Acid 1,000 mg/ 510 mls @ 63.75 mls/hr 05/31/16 15:45 05/31/16 16:34 Sodium Chloride IV 05/31/16 23:44 510 mls ONCE ONE Administration Potassium Chloride 100 mls @ 100 mls/hr 06/01/16 11:00 06/01/16 13:57 Potassium Cl 10 Meq (Premix) IV 06/01/16 13:59 100 mls Q1H ANDIE Administration Magnesium Sulfate/Dextrose 100 mls @ 100 mls/hr 06/01/16 10:49 06/01/16 11:35 Magnesium Sulf 1 Gm (Premix) IV 06/01/16 11:48 100 mls ONCE ONE Administration Pantoprazole Sodium 40 mg/ 100 mls @ 200 mls/hr 06/01/16 21:00 Sodium Chloride IV 11/28/16 20:59 BID ANDIE Calcium Gluconate 50 mls @ 100 mls/hr 06/01/16 13:01 06/01/16 13:55 Calcium Gluconate 1 Gm (Premix) IV 06/01/16 13:30 50 mls ONCE ONE Administration Midazolam HCl Confirm 05/31/16 12:43 Versed Administered 05/31/16 12:44 Dose 2 mg .ROUTE .STK-MED ONE Octreotide Acetate 50 mcg 05/31/16 13:44 05/31/16 15:19 Octreotide Acetate IVP 05/31/16 13:45 Not Given ONCE ONE Octreotide Acetate 50 mcg 05/31/16 15:30 05/31/16 15:23 Sandostatin IV 05/31/16 15:31 50 mcg ONCE ONE Administration Ondansetron HCl 4 mg 05/31/16 09:01 05/31/16 09:22 Zofran IVP 05/31/16 09:02 4 mg EDNOW ONE Administration Ondansetron HCl 4 mg 05/31/16 09:30 05/31/16 10:07 Zofran IVP 05/31/16 09:31 4 mg EDNOW ONE Administration Ondansetron HCl 4 mg 05/31/16 13:28 05/31/16 15:27 Zofran IVP 11/27/16 13:27 4 mg Q4 PRN Administration Nausea/Vomiting, Can't Take PO Pantoprazole Sodium 40 mg 05/31/16 09:30 05/31/16 10:07 Protonix IVP 05/31/16 09:31 40 mg EDNOW ONE Administration Potassium Chloride 10 - 40 meq 06/01/16 19:46 06/01/16 20:05 Klor-Con PO 06/01/16 19:47 20 meq ONCE ONE Administration Protocol Potassium Chloride 10 - 40 meq 06/02/16 07:30 06/02/16 08:16 Klor-Con PO 06/02/16 07:31 20 meq ONCE ONE Administration Protocol Propofol Confirm 05/31/16 12:46 Diprivan 10 Mg/Ml (Premix) Administered 05/31/16 12:47 Dose 500 mg IV .K-MED ONE Physical Exam - Physical Exam General Appearance: alert, no apparent distress Respiratory: lungs clear, normal breath sounds Cardiac/Chest: regular rate, rhythm Abdomen: normal bowel sounds, non-tender, soft Skin: normal color, warm/dry Extremities: non-tender Neuro/Psych: no motor/sensory deficits, alert, normal mood/affect ICD10 Worksheet Patient Problems: Problems Problem Status Diagnosed GI bleed Acute Renal failure Acute
[2016-06-02] MEDS: NADOLOL 20 MG TAB PO SCH (12:58)
[2016-06-02 19:37] LABS: POTASSIUM 3.6 mEq/L (3.5-5.2)
[2016-06-02] MEDS ORDERED: LATANOPROST 0.005% EACHEYE SCH (21:00)
[2016-06-02] MEDS: METOPROLOL SUCCINATE XR 50 MG TAB PO SCH (21:07)
[2016-06-03 04:45] VITALS: O2SAT 95
[2016-06-03 05:58] LABS: % IMMATURE GRANULYOCYTES 0.3 % (0.0-1.1); ABSOLUTE IMMATURE GRANULOCYTES 0.03 10^3/uL (0.00-0.10); ADD DIFF? NO; ADD MORPH? NO; ADD SCAN? NO; ATYPICAL LYMPHOCYTE FLAG 0 (0-99); FRAGMENT RBC FLAG 0 (0-99); HEMATOCRIT 32.8 % (40.0-51.0); HEMOGLOBIN 11.3 g/dL (13.7-17.5); LEFT SHIFT FLG 0 (0-99); LIPEMIA HEMOLYSIS FLAG 90 (0-99); MEAN CELL HEMOGLOBIN CONCENTR. 34.5 g/dL (32.4-36.7); MEAN CELL VOLUME 95.9 fL (81.5-99.8); MEAN PLATELET VOLUME 11.7 fL (8.7-11.7); PLATELET CLUMPS FLAG 20 (0-99); PLATELET COUNT 71 10^3/uL (150-400); RED BLOOD CELL COUNT 3.42 10^6/uL (4.40-6.38)
[2016-06-03 06:19] LABS: ANION GAP 5 mEq/L (8-16); CALCIUM 7.8 mg/dL (8.5-10.4); CARBON DIOXIDE 23 mEq/l (22-31); CHLORIDE 108 mEq/L (97-110); CREATININE 0.9 mg/dL (0.7-1.3); GLOMERULAR FILTRATION RATE > 60; GLUCOSE 118 mg/dL (70-100); MAGNESIUM 1.8 mg/dL (1.6-2.3); POTASSIUM 3.6 mEq/L (3.5-5.2); SODIUM 136 mEq/L (134-144)
[2016-06-03 08:35] VITALS: BP 127/63; PULSE 72; RESP 20; TEMP 98.7
[2016-06-03] MEDS ORDERED: THIAMINE HCL 100 MG TAB PO SCH (09:00)
--- NOTE | 2016-06-03 09:30 | HOSPPROG ---
Hospitalist Progress Note Assessment/Plan: patient is a 70-year-old male who presented to the emergency room with nausea and vomiting. Also had coffee ground emesis. I reviewed his care with Dr. Ocampo who has been caring for him. This is my 1st encounter with the patient. Chart reviewed. Reviewed his care with Dr Fish. 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 Subjective: Chepe is feeling fine. No complaints. Objective: Vital Signs Temp Pulse Resp BP Pulse Ox 37.1 C 72 20 127/63 H 95 06/03/16 08:00 06/03/16 08:00 06/03/16 08:00 06/03/16 08:00 06/03/16 08:00 Laboratory Results 06/03/16 05:09 06/03/16 05:09 06/02/16 06/03/16 06/04/16 05:59 05:59 05:59 Intake Total 2130 150 Output Total 1675 300 Balance 455 -150 PT 17.5 SEC (12.0-15.0) H 05/31/16 09:00 INR 1.44 (0.83-1.16) H 05/31/16 09:00 - Physical Exam Constitutional: no apparent distress, appears nourished, not in pain Eyes: PERRL Ears, Nose, Mouth, Throat: hearing normal Cardiovascular: regular rate and rhythym Respiratory: no respiratory distress Gastrointestinal: normoactive bowel sounds Skin: warm, normal color Musculoskeletal: full muscle strength Neurologic: AAOx3 Psychiatric: interacting appropriately, flat affect ICD10 Worksheet Patient Problems: Problems Problem Status Diagnosed GI bleed Acute Renal failure Acute
[2016-06-03] MEDS: PANTOPRAZOLE SODIUM 40 MG TAB PO SCH (09:52)
[2016-06-03] MEDS: NADOLOL 20 MG TAB PO SCH (09:52)
[2016-06-03] MEDS: FOLIC ACID 1 MG TAB PO SCH (09:53)
[2016-06-03] MEDS: MAGNESIUM OXIDE 400 MG TAB PO SCH (09:53)
--- NOTE | 2016-06-03 10:34 | GDS ---
[f rep st] DISCHARGE SUMMARY DISCHARGE DIAGNOSES: 1. Upper gastrointestinal bleed. 2. Erosive esophagitis. 3. Esophageal varices, status post banding. 4. Acute blood loss anemia. 5. Alcoholic cirrhosis. 6. Alcohol withdrawal. 7. Thrombocytopenia. CONSULTATIONS: During his stay, Dr. Daron Fish. BRIEF HISTORY: The patient is a 70-year-old male, who had nausea and vomiting for approximately 2 days prior to his admission. He had coffee-grounds emesis and then it turned to bright red blood. He also has been having melena with loose stool. He is a known alcoholic and started drinking again. He abstain for awhile while he took Antabuse. During his stay, he was seen and evaluated by Dr. Fish. On 05/31/2016, he had an EGD with banding for an upper GI bleed. It was noted that he had severe erosive esophagitis, questionable underlying varices, status post banding. He went to the ICU. He was transfused 2 units of packed red blood cells. He was treated with octreotide drip. Since then, he transferred to the floor. His vital signs have been stable. His blood counts have been stable. He will be discharged home today to further follow up with Dr. Franks. HOSPITAL COURSE: 1. Upper GI bleed. This is stable after getting 2 units transfusion. 2. Erosive esophagitis. He will be on a p.o. PPI b.i.d. 3. Esophageal varices, status post banding. Nadolol was initiated. He will need repeat EGD in 4 weeks. 4. Acute blood loss anemia, stable. 5. Alcoholic cirrhosis. 6. Alcohol withdrawal. This has been mild. 7. Thrombocytopenia. This is secondary to alcohol use. PENDING LABS AND TESTS: None. CONDITION AT DISCHARGE: Stable. Blood pressure is 127/63, heart rate is 72, respiratory rate is 20, O2 saturation on 1 L is 95%. Temperature is 37.1 Celsius. MEDICATIONS AT DISCHARGE: Please see the EMR. DISCHARGE INSTRUCTIONS: 1. It is critical he abstain from alcohol. We will ask case management to see him prior to discharge. Recommending that he go to AA. 2. See Dr. Franks this week. 3. Repeat EGD in 4 weeks. 4. Take Protonix b.i.d. Greater than 30 minutes discharging and coordinating care. /[id number]/MODL MTDD
[2016-06-03] MEDS ORDERED: POTASSIUM CL 10 MEQ TAB PO ONE (10:40)
[2016-06-03] MEDS ORDERED: MAGNESIUM SULF 1 GM/DEXTROSE 100 ML IV ONE (10:41)
[2016-06-03 10:53] LABS: SMOOTH MUSCLE ANTIBODIES SERUM Negative (Negative)
[2016-06-03 14:01] LABS: ANTINUCLEAR ANTIBODIES SCREEN 0.37 UNITS (<1.00)
== END 2016-06-03 13:24 | disposition home or self-care (01) | DRG 369 ==
LOC: F2N 13:49 → F3E 06-01 13:37
PROVIDERS: ADMIT Internal Medicine; ATTEND Internal Medicine
PROC: 30233N1 Transfusion of Nonautologous Red Blood Cells into Peripheral Vein, Percutaneous Approach (ICD-10-PCS; 2016-05-31)
PROC: 06L34CZ Occlusion of Esophageal Vein with Extraluminal Device, Percutaneous Endoscopic Approach (ICD-10-PCS; principal; 2016-05-31 12:30)
DX: I85.01 Esophageal varices with bleeding (principal); D62 Acute posthemorrhagic anemia; F10.239 Alcohol dependence with withdrawal, unspecified; K22.10 Ulcer of esophagus without bleeding; I10 Essential (primary) hypertension; E78.00 Pure hypercholesterolemia, unspecified; K70.30 Alcoholic cirrhosis of liver without ascites; K44.9 Diaphragmatic hernia without obstruction or gangrene; D69.6 Thrombocytopenia, unspecified; H40.9 Unspecified glaucoma
CPT/HCPCS: 86255-90; 96374; G0472; J0610; J2250; J2353; J2354; J2405; J2704; J3010; J3411; J3475; P9016; P9040